=== PATIENT | male | born 1975 | race Caucasian/White ===

== ENCOUNTER 2021-08-26 08:49 | Emergency (ER) | payer BC, SELFPAY ==
[2021-08-26] VITALS (13 sets, daily range): BP systolic 131–151; BP diastolic 82–89; PULSE 66–87; RESP 20–28; TEMP 36.2; O2SAT 91–100
--- NOTE | ~2021-08-26 | CT_ITS ---
EXAMINATION: CT abdomen pelvis wo con DATE: 08/26/2021 09:32 INDICATION: Right flank pain, history of colon cancer TECHNIQUE: Computed tomography (CT) of the abdomen and pelvis was performed without intravenous contr ast. The dose-length product (DLP) was 1193.22 mGy-cm. Automated exposure control and iterative recon struction technique were employed. COMPARISON: 12/22/2011 FINDINGS: There are trace pleural effusions. Mild dependent atelectasis is seen in the visualized donta g bases. The heart size is normal. The liver is diffusely low in attenuation when compared with the s pleen, consistent with hepatic steatosis. The spleen, pancreas, gallbladder, and adrenal glands are n ormal. There is a 4 mm stone in the right mid ureter which causes mild hydroureteronephrosis. No ston es are present in the left kidney, left ureter, or the bladder. There is a 14 mm exophytic soft tissu e density mass in the anterior aspect of the left kidney lower pole. There are surgical changes in th e colon at the splenic flexure. There is mild retroperitoneal lymphadenopathy. There are also changes of appendectomy. There is an 8.2 x 4.4 cm calcified soft tissue mass involving the rectus muscles of the right abdominal wall. An adjacent 3 cm mass is also seen superomedially in the abdominal wall. T here is no free intraperitoneal gas or evidence of bowel obstruction. IMPRESSION: 1. 4 mm stone of the right mid ureter causing mild hydroureteronephrosis. 2. Calcified soft tissue masses of the right anterior abdominal wall. Given history of colon cancer, these are concerning for metastatic disease. If not previously evaluated, ultrasound guided biopsy wo uld be recommended. 3. Indeterminate mass of the left kidney lower pole. Follow-up with nonemergent CT or MRI without and with contrast is recommended. 4. Mild retroperitoneal lymphadenopathy, reactive versus metastatic. Reviewed, dictated and finalized at [facility]. IMPRESSION: 1. 4 mm stone of the right mid ureter causing mild hydroureteronephrosis. 2. Calcified soft tissue masses of the right anterior abdominal wall. Given his tory of colon cancer, these are concerning for metastatic disease. If not previ ously evaluated, ultrasound guided biopsy would be recommended. 3. Indeterminate mass of the left kidney lower pole. Follow-up with nonemergent CT or MRI without and with contrast is recommended. 4. Mild retroperitoneal lymphadenopathy, reactive versus metastatic.
--- NOTE | ~2021-08-26 | XR_ITS ---
XR abdomen/kub 1V DATE: 08/26/2021 11:35 INDICATION: Kidney stone TECHNIQUE: AP projection, 2 views COMPARISON: 08/26/2021 CT abdomen pelvis FINDINGS: Reported 4 mm calculus of the right ureter is radiographically occult on this KUB, possibly nonopaque or obscured by overlapping sacroiliac bony structures. There is no evidence of bowel obstruction. The psoas shadows are intact. The lung bases appear essent ially clear. Included skeletal structures are unremarkable. IMPRESSION: Nonspecific abdomen; right ureteral calcified calculus is radiographically occult on this KUB Reviewed, dictated and finalized at [facility]. Reviewed, dictated and finalized at [facility]. IMPRESSION: Nonspecific abdomen; right ureteral calcified calculus is radiograp hically occult on this KUB
--- NOTE | 2021-08-26 09:09 | PC.NURSE ---
BEAR Campbell at the bedside to assess pt.
[2021-08-26] MEDS: SODIUM CHLORIDE 0.9% IV 1,000 ML 999 ML IV CONT (09:20)
[2021-08-26] MEDS: ONDANSETRON INJ 4 MG/2 ML VIAL IV PUSH (09:20)
[2021-08-26] MEDS: MORPHINE SULFATE (*CRX) 4 MG/ML INJ IV PUSH (09:20)
[2021-08-26 09:30] LABS: Basophils Percent Auto 0.3 % (0.2-1.2); Hematocrit 47.9 % (42.0-52.0); Hemoglobin 16.2 g/dL (14.0-18.0); Immature Granulocyte Absolute 0.03 K/mm3 (0.00-0.031); Immature Granulocyte Percent A 0.3 % (0-0.5); Lymphocytes Absolute Auto 0.86 K/mm3 (0.9-3.2); Lymphocytes Percent Auto 7.2 % (18.3-44.2); Mean Corpuscular HGB Conc 33.8 g/dl (32-36); Mean Corpuscular Hemoglobin 29.9 pg (26-34); Mean Corpuscular Volume 88.4 fl (80-100); Mean Platelet Volume 10.1 fl (7.4-10.4); Monocytes Absolute Auto 0.4 K/mm3 (0.1-0.6); Monocytes Percent Auto 3.5 % (2.6-8.5); Neutrophils Absolute Auto 10.6 K/mm3 (1.3-6.7); Neutrophils Percent Auto 88.7 % (45.5-73.1); Platelet Count Result 235 k/mm3 (150-375); Red Blood Count 5.42 M/mm3 (4.6-6.20); Red Cell Distribution Width 14.3 % (11.5-14.5)
[2021-08-26 09:45] LABS: Alanine Aminotransferase 67 U/L (6-50); Albumin Level 4.8 g/dL (3.5-5.1); Alkaline Phosphatase 73 U/L (38-126); Anion Gap 13 mmol/L (8-16); Aspartate Amino Transferase 30 U/L (17-59); Bilirubin,Total 0.7 mg/dL (0.2-1.3); Blood Urea Nitrogen 16 mg/dL (9-20); Calcium 9.5 mg/dL (8.4-10.2); Carbon Dioxide 22 mmol/L (22-30); Chloride 103 mmol/L (98-107); Estimated CRCL calculation 93 ml/min; Estimated Glomerular Filt Rate > 60; Glucose 195 mg/dL (65-110); Lipase 138 U/L (23-300); Potassium 4.2 mmol/L (3.4-5.0); Sodium 138 mmol/L (137-145)
[2021-08-26 10:13] LABS: Appearance Urine Cloudy (Clear); Bilirubin Urine 1+ (Negative); Blood Urine 3+ (Negative); Color Urine Yellow (Yellow); Glucose Urine UA Trace mg/dL (Negative); Ketones Urine Trace mg/dL (Negative); Leukocyte Esterase Ur Negative LEU/UL (Negative); Nitrate Urine Negative (Negative); Protein Urine 2+ mg/dL (Negative); Specific Grav Ur >= 1.030 (1.001-1.035); Urobilinogen Urine 0.2 mg/dL (<2.0)
[2021-08-26 10:15] LABS: Add Urine Microscopic? YES
[2021-08-26 10:20] LABS: Mucus Urine Few /lpf; RBC Urine >75 /hpf (0-2); Squamous Epithelial Cell Urine Rare /hpf (Few)
--- NOTE | 2021-08-26 13:48 | ED.GENADULT ---
HPI - General Adult General Chief complaint: Abdominal Pain Stated complaint: flank pain/vomiting Time Seen by Provider: 08/26/21 09:05 History of Present Illness HPI narrative: Patient is a 45-year-old male with a history of kidney stones, colon cancer currently on experimental medication, here for evaluation of right-sided flank pain for the past day with nausea and vomiting. Notes that the pain is severe, colicky, and similar to previous kidney stones. He has not tried any medication for his symptoms. Of note, he does have colon cancer, had a resection procedure that was unsuccessful so he is now on an experimental medication. He follow with oncology at [place] and has an appointment tomorrow. Denies abdominal pain, diarrhea, constipation, fevers, chills. Related Data Allergies Allergy/AdvReac Type Severity Reaction Status Date / Time Penicillins Allergy Mild Joint Pain Verified 08/26/21 09:12 Review of Systems Review of Systems: Gen: Denies fevers or chills Eyes: Denies eye pain or visual change ENT: Denies congestion Respiratory: Denies shortness of breath or cough CV: Denies chest pain or palpitations GI: Reports nausea and vomiting. Denies diarrhea denies burning, urgency, frequency or hematuria Musculoskeletal: Reports back pain Neuro: Denies numbness, tingling, weakness or focal weakness Skin: Denies rash Except as documented, all other systems reviewed and negative Exam Narrative: APPEARANCE: Uncomfortable appearing. Head: Normocephalic and atraumatic. EYES: PERRLA/EOMI, conjunctivae clear NOSE: No nasal drainage EARS: External ear normal in appearance THROAT: Oropharynx is clear. Mucous membranes are moist. NECK: Supple. No adenopathy, no masses. RESPIRATORY: Airway patent, respirations nonlabored. Clear to auscultation bilaterally, no rales, rhonchi, wheezing. CARDIOVASCULAR: Regular rate and rhythm without murmurs, rubs, or gallops. ABDOMINAL: Normoactive bowel sounds. Soft, nontender, nondistended. No rebound tenderness or guarding. MUSCULOSKELETAL: No CVA tenderness. Extremities are warm and well-perfused. Moves all extremities well. No edema. NEURO: Normal speech. No focal neurologic deficits. SKIN: Skin is warm and dry. No rashes. PSYCHIATRIC: Normal affect/mood. Course Vital Signs Vital signs: Vital Signs Pulse Rate 67 08/26/21 08:57 Respiratory Rate 28 H 08/26/21 08:57 Pulse Oximetry 100 08/26/21 08:57 Temperature 97.2 F L 08/26/21 09:02 Pulse Rate 66 08/26/21 12:16 Respiratory Rate 20 08/26/21 10:45 Blood Pressure 131/82 08/26/21 12:16 Pulse Oximetry 94 08/26/21 12:16 Oxygen Delivery Room Air 08/26/21 09:02 Medical Decision Making MDM Narrative Medical decision making narrative: 45-year-old male with a history of nephrolithiasis and colon cancer here for evaluation of right flank pain nausea and vomiting today. Patient was initially hypertensive, likely due to pain, this resolved after pain medicine. He has evidence of a 4 mm stone in the right mid ureter. No evidence of infection on his urine, although he does have a white count of 12. His pain improved after morphine in the ED and he is able to tolerate p.o. Discussed case with VIVEK Abrams at urology office, recommended KUB and will see in office this week. His CT findings does comment on his abdominal masses, patient and are aware of these findings, I provided him with a copy of this report to bring to her follow-up oncology appointment when she has this week. Discussed return precautions with patient, he voiced understanding. Vital Signs Vital Signs: Vital Signs Pulse Rate 67 08/26/21 08:57 Respiratory Rate 28 H 08/26/21 08:57 Pulse Oximetry 100 08/26/21 08:57 Temperature 97.2 F L 08/26/21 09:02 Pulse Rate 66 08/26/21 12:16 Respiratory Rate 20 08/26/21 10:45 Blood Pressure 131/82 08/26/21 12:16 Pulse Oximetry 94 08/26/21 12:16 Oxygen Delivery Room Air
== END 2021-08-26 12:28 | disposition home or self-care (01) ==
PROVIDERS: Physician Assistant; Emergency Provider Emergency Medicine
DX: N13.2 Hydronephrosis with renal and ureteral calculous obstruction (principal); C18.9 Malignant neoplasm of colon, unspecified; Z87.442 Personal history of urinary calculi
CPT/HCPCS: 36415; 74018; 74176; 80053; 81001; 83690; 85025; 96361; 96374; 96375; 99284; J2270; J2405; J7030

== ENCOUNTER 2021-10-12 08:52 | Emergency (ER) | payer BC, SELFPAY ==
[2021-10-12] VITALS (15 sets, daily range): BP systolic 116–152; BP diastolic 68–97; PULSE 67–88; RESP 16; TEMP 37; O2SAT 93–97
--- NOTE | ~2021-10-12 | CT_ITS ---
EXAMINATION: CT abdomen pelvis wo con DATE: 10/12/2021 09:22 INDICATION: Right flank pain and vomiting TECHNIQUE: Computed tomography (CT) of the abdomen and pelvis was performed without intravenous contr ast. The dose-length product (DLP) was 1366.02 mGy-cm. Automated exposure control and iterative recon struction technique were employed. COMPARISON: 08/06/2021 FINDINGS: There is a small left pleural effusion. The heart size is normal. There is a small sliding hiatal hernia. The liver is diffusely low in attenuation when compared with the spleen, consistent wi th hepatic steatosis. The spleen, pancreas, gallbladder, and adrenal glands are normal. There is a 5 mm stone in the distal right ureter causing mild hydroureteronephrosis. A 14 mm exophytic, soft tissu e density mass is again noted in the left kidney lower pole. There are calcified soft tissue masses i n the anterior abdominal wall of the right lower quadrant without significant change. Mild retroperit cooper lymphadenopathy is again noted. Surgical changes are seen at the splenic flexure of the colon. IMPRESSION: 1. 5 mm right distal ureteral stone causing mild hydroureteronephrosis. 2. Unchanged soft tissue density mass left kidney lower pole which could reflect proteinaceous cyst v ersus neoplasm. 3. Stable calcified soft tissue masses of the right anterior abdominal wall concerning for metastatic disease. 4. Stable mild retroperitoneal lymphadenopathy, reactive versus metastatic. Reviewed, dictated and finalized at location [facility]. IMPRESSION: 1. 5 mm right distal ureteral stone causing mild hydroureteronephrosis. 2. Unchanged soft tissue density mass left kidney lower pole which could reflec t proteinaceous cyst versus neoplasm. 3. Stable calcified soft tissue masses of the right anterior abdominal wall con cerning for metastatic disease. 4. Stable mild retroperitoneal lymphadenopathy, reactive versus metastatic.
--- NOTE | ~2021-10-12 | XR_ITS ---
EXAMINATION: XR abdomen/kub 1V INDICATION: Right ureteral stone TECHNIQUE: Supine views of the abdomen were obtained on 2 radiographs. COMPARISON: CT from today FINDINGS: There is a 5 mm calcification in the right pelvis in the expected location of the distal ri ght ureter. The bowel gas pattern is normal. No additional urolithiasis is identified. IMPRESSION: 1. 5 mm calcification in the right pelvis in the expected location of the distal right ureter. Reviewed, dictated and finalized at location [facility]. IMPRESSION: 1. 5 mm calcification in the right pelvis in the expected location of the dista l right ureter.
--- NOTE | 2021-10-12 09:05 | ED.BACK ---
HPI - Back Pain/Injury General Chief Complaint: Back Pain/Injury Stated Complaint: right flank pain, vomiting Time Seen by Provider: 10/12/21 08:57 History of Present Illness HPI Narrative: Patient is a 45-year-old male with a history of nephrolithiasis and colon cancer here for evaluation of right flank pain and vomiting today. Notes that the pain is sharp and severe in nature, not present in his right flank, does not radiate. He had 1 episode of vomiting today nonbloody/nonbilious emesis. He took a [place] about 4 hours ago. He vomited up shortly after. That the pain today feels identical to the pain that he had when he was diagnosed with a kidney stone 2 months ago. This was a 4 mm stone, and passed on its own, he did not require surgical intervention. Denies fevers, chills, diarrhea, constipation, chest pain or shortness of breath, dysuria, urgency or frequency. Related Data Allergies Allergy/AdvReac Type Severity Reaction Status Date / Time Penicillins Allergy Mild Joint Pain Verified 08/26/21 09:12 Review of Systems Review of Systems: Gen: Denies fevers or chills Eyes: Denies eye pain or visual change ENT: Denies congestion Respiratory: Denies shortness of breath or cough CV: Denies chest pain or palpitations GI: Reports nausea and vomiting. Denies abdominal pain or diarrhea denies burning, urgency, frequency or hematuria Musculoskeletal: Reports right flank pain. Denies back pain or muscle pain Neuro: Denies numbness, tingling, weakness or focal weakness Skin: Denies rash Except as documented, all other systems reviewed and negative Exam Narrative: APPEARANCE: Uncomfortable appearing. Head: Normocephalic and atraumatic. EYES: PERRLA/EOMI, conjunctivae clear NOSE: No nasal drainage EARS: External ear normal in appearance THROAT: Oropharynx is clear. Mucous membranes are moist. NECK: Supple. No adenopathy, no masses. RESPIRATORY: Airway patent, respirations nonlabored. Clear to auscultation bilaterally, no rales, rhonchi, wheezing. CARDIOVASCULAR: Regular rate and rhythm without murmurs, rubs, or gallops. ABDOMINAL: No CVA tenderness. Normoactive bowel sounds. Soft, nontender, nondistended. No rebound tenderness or guarding. MUSCULOSKELETAL: Extremities are warm and well-perfused. Moves all extremities well. No edema. NEURO: Normal speech. No focal neurologic deficits. SKIN: Skin is warm and dry. No rashes. PSYCHIATRIC: Normal affect/mood.. Course Vital Signs Vital signs: Vital Signs Temperature 98.6 F 10/12/21 09:02 Pulse Rate 67 10/12/21 09:02 Respiratory Rate 16 10/12/21 09:02 Blood Pressure 150/82 H 10/12/21 09:02 Pulse Oximetry 97 10/12/21 09:02 Temperature 98.6 F 10/12/21 09:02 Pulse Rate 67 10/12/21 09:02 Respiratory Rate 16 10/12/21 09:02 Blood Pressure 150/82 H 10/12/21 09:02 Pulse Oximetry 97 10/12/21 09:02 MDM - Back Pain/Injury MDM Narrative Medical decision making narrative: 45-year-old male here for evaluation of right-sided flank pain with nausea and vomiting today, notes previous similar sensation with kidney stone. On exam he is uncomfortable appearing, has no CVA tenderness. He is work-up is significant for a 5 mm distal kidney stone on the right causing mild hydroureteronephrosis. His kidney function is normal. His urine has blood but appears noninfected. His pain and nausea improved after medications in the ED. he has a urine strainer at home, instructed him to use this with every void and to follow-up with his urologist this following week. Will shoot a KUB for urology to track progression of stone as an outpatient. Additionally, patient has a known history of colon cancer and follows with his oncologist weekly. Informed patient of the additional findings on the CT scan concerning for metastatic disease, they state this is well-known and is being followed in office. He was given reasons to return to the ED. Lab Data Result diagrams: 10/12/21
[2021-10-12 09:10] LABS: Basophils Percent Auto 0.6 % (0.2-1.2); Eosinophils Percent Auto 0.3 % (0-4.4); Hematocrit 43.2 % (42.0-52.0); Hemoglobin 14.4 g/dL (14.0-18.0); Immature Granulocyte Absolute 0.03 K/mm3 (0.00-0.031); Immature Granulocyte Percent A 0.5 % (0-0.5); Lymphocytes Absolute Auto 0.95 K/mm3 (0.9-3.2); Lymphocytes Percent Auto 14.7 % (18.3-44.2); Mean Corpuscular HGB Conc 33.3 g/dl (32-36); Mean Corpuscular Volume 93.1 fl (80-100); Mean Platelet Volume 8.8 fl (7.4-10.4); Monocytes Absolute Auto 0.6 K/mm3 (0.1-0.6); Monocytes Percent Auto 8.7 % (2.6-8.5); Neutrophils Absolute Auto 4.9 K/mm3 (1.3-6.7); Neutrophils Percent Auto 75.2 % (45.5-73.1); Platelet Count Result 172 k/mm3 (150-375); Red Blood Count 4.64 M/mm3 (4.6-6.20); Red Cell Distribution Width 17.3 % (11.5-14.5); White Blood Count 6.5 K/mm3 (4.5-10.0)
[2021-10-12 09:19] LABS: Alanine Aminotransferase 77 U/L (6-50); Albumin Level 4.3 g/dL (3.5-5.1); Alkaline Phosphatase 97 U/L (38-126); Anion Gap 12 mmol/L (8-16); Aspartate Amino Transferase 37 U/L (17-59); Bilirubin,Total 0.8 mg/dL (0.2-1.3); Blood Urea Nitrogen 13 mg/dL (9-20); Calcium 9.2 mg/dL (8.4-10.2); Carbon Dioxide 27 mmol/L (22-30); Chloride 99 mmol/L (98-107); Estimated CRCL calculation 84 ml/min; Estimated Glomerular Filt Rate > 60; Glucose 193 mg/dL (65-110); Potassium 4.2 mmol/L (3.4-5.0); Sodium 138 mmol/L (137-145)
[2021-10-12] MEDS: ONDANSETRON INJ 4 MG/2 ML VIAL IV PUSH (09:56)
[2021-10-12] MEDS: MORPHINE SULFATE (*CRX) 4 MG/ML INJ IV PUSH (09:57)
[2021-10-12 10:21] LABS: Appearance Urine Cloudy (Clear); Bilirubin Urine 1+ (Negative); Blood Urine 3+ (Negative); Glucose Urine UA Negative (Negative); Ketones Urine Negative (Negative); Leukocyte Esterase Ur Negative LEU/UL (Negative); Nitrate Urine Negative (Negative); Protein Urine 2+ mg/dL (Negative); Specific Grav Ur >= 1.030 (1.001-1.035); Urobilinogen Urine 0.2 mg/dL (<2.0); pH Urine 5.5 (5.0-9.0)
[2021-10-12 10:25] LABS: Add Urine Microscopic? YES; Color Urine Dark Yellow (Yellow)
--- NOTE | 2021-10-12 10:33 | PC.NURSE ---
pt. to ct
[2021-10-12 10:38] LABS: Calcium Oxalate Crystals Urine Present /hpf; Mucus Urine Few /lpf; RBC Urine >75 /hpf (0-2); Squamous Epithelial Cell Urine Rare /hpf (Few); Uric Acid Crystals Urine Present /hpf; WBC Urine 16-20 /hpf
[2021-10-12] MEDS: KETOROLAC 15 MG/ML VIAL (*BKC) IV PUSH (10:53)
== END 2021-10-12 11:45 | disposition home or self-care (01) ==
PROVIDERS: Physician Assistant; Emergency Provider Emergency Medicine
DX: N13.2 Hydronephrosis with renal and ureteral calculous obstruction (principal); Z87.442 Personal history of urinary calculi; Z85.038 Personal history of other malignant neoplasm of large intestine; N28.89 Other specified disorders of kidney and ureter
CPT/HCPCS: 36415; 74018; 74176; 80053; 81001; 85025; 87086; 87088; 96374; 96375; 99284; J1885; J2270; J2405